=== PATIENT | female | born 1995 | race Caucasian/White ===

== ENCOUNTER 2019-03-09 04:24 | Emergency (ER) | payer MEDICAID, OTHER ==
[~2019-03-09] VITALS: Ht 157.5 cm; Wt 59.6 kg
[2019-03-09 04:35] VITALS: BP_SYST 104
[2019-03-09] MEDS ORDERED: DIPH,PERTUSS(ACELL),TET VAC/PF 0.5 ML IM-VACC ONE ×2 (04:50→05:00)
[2019-03-09] MEDS ORDERED: LIDOCAINE-MPF 1%, 5ML ONE (04:50)
[2019-03-09] MEDS ORDERED: LIDOCAINE-MPF 1%, 5ML INFIL ONE (05:00)
== END 2019-03-09 05:38 | disposition home or self-care (01) ==
LOC: ED 05:28
DX: L02.211 Cutaneous abscess of abdominal wall (principal)
CPT/HCPCS: 10060; 90471; 90715; 99283; 99284

== ENCOUNTER 2019-03-14 12:28 | Emergency (ER) | payer MEDICAID ==
[~2019-03-14] VITALS: Ht 157.5 cm; Wt 56.5 kg
--- NOTE | 2019-03-14 12:35 | NUR ---
NA X1
[2019-03-14 12:36] VITALS: BP 123/66
--- NOTE | 2019-03-14 13:05 | NUR ---
NIL X1
== END 2019-03-14 13:46 | disposition home or self-care (01) ==
LOC: ED 13:40
DX: L02.214 Cutaneous abscess of groin (principal); F17.200 Nicotine dependence, unspecified, uncomplicated
CPT/HCPCS: 99282

== ENCOUNTER 2020-03-04 00:16 | Emergency (ER) | payer MEDICAID ==
[~2020-03-04] VITALS: Ht 157.5 cm; Wt 51.5 kg
[2020-03-04] MEDS ORDERED: CEFTRIAXONE 250 MG ONE (00:29)
[2020-03-04] MEDS ORDERED: CEFTRIAXONE 250 MG IM ONE (00:30)
[2020-03-04] MEDS ORDERED: AZITHROMYCIN 250 MG TABLET ONE (00:30)
[2020-03-04] MEDS ORDERED: LIDOCAINE-MPF 1%, 2ML ONE (00:30)
[2020-03-04] MEDS ORDERED: AZITHROMYCIN 500 MG TABLET PO ONE (00:30)
[2020-03-04 01:01] LABS: HCG UR SG 1.028 (1.003-1.030)
[2020-03-04 01:02] LABS: MICROSCOPIC INDICATED
[2020-03-04 01:53] LABS: CLUE CELLS PRESENT (NONE SEEN)
[2020-03-04 01:54] LABS: WET PREP WBCS FEW (FEW)
[2020-03-04 02:36] VITALS: BP 110/72
--- NOTE | 2020-03-04 02:36 | NUR ---
Patient given discharge instructions and they have confirmed that they understand the instructions. Patient ambulatory with steady gait.
== END 2020-03-04 02:43 | disposition home or self-care (01) ==
LOC: ED 02:25
DX: N30.00 Acute cystitis without hematuria (principal); N76.0 Acute vaginitis; A74.9 Chlamydial infection, unspecified; A54.9 Gonococcal infection, unspecified
CPT/HCPCS: 81001; 81025; 87077; 87086; 87210; 87491; 87591; 87808; 96372; 99284; J0696; 87186; 99283